=== PATIENT | female | born 1960 | race Two or more races ===

== ENCOUNTER 2017-06-30 10:45 | Emergency (ER) | payer MEDICAID, OTHER ==
[~2017-06-30] VITALS: Ht 154.9 cm; Wt 93.0 kg
[2017-06-30 13:43] VITALS: BP 186/85
== END 2017-06-30 15:29 | disposition home or self-care (01) ==
LOC: ER 10:45
DX: H66.91 Otitis media, unspecified, right ear (principal); J02.9 Acute pharyngitis, unspecified; H93.11 Tinnitus, right ear; I10 Essential (primary) hypertension